=== PATIENT | female | born 1975 | race Two or more races ===

== ENCOUNTER 2023-05-07 22:27 | Emergency (ER) | payer OTHER ==
[~2023-05-07] VITALS: Ht 157.5 cm; Wt 50.0 kg
[2023-05-08] MEDS ORDERED: IBUP-1456 PO (02:28)
[2023-05-08] MEDS ORDERED: CEPH500C PO (02:28)
[2023-05-08] MEDS ORDERED: KETOROLAC TROMETH 60MG/2ML VIAL IM ONE (02:30)
[2023-05-08 04:33] VITALS: BP 120/66; PULSE 130; RESP 20; TEMP 98.2; O2SAT 98
== END 2023-05-08 04:41 | disposition home or self-care (01) ==
LOC: ER 22:27
DX: M25.562 Pain in left knee (principal); M25.561 Pain in right knee; F17.210 Nicotine dependence, cigarettes, uncomplicated; Z79.899 Other long term (current) drug therapy